=== PATIENT | male | born 1980 | race American Indian/Alaskan Native ===

== ENCOUNTER 2016-11-09 22:02 | Emergency (ER) | payer SELFPAY ==
[2016-11-09 22:15] VITALS: BP 124/71; PULSE 67; RESP 16; TEMP 98.3; O2SAT 99
[2016-11-09] MEDS ORDERED: Amoxicillin-Clav 875-125 mg Tab PO STA (22:30)
[2016-11-09] MEDS ORDERED: Bacitracin 500 Units/gm Oint Foilpak UD TOP ONE (22:30)
[2016-11-09] MEDS ORDERED: Amoxicillin-Clav 875-125 mg Tab PO ONE (22:33)
[2016-11-09] MEDS ORDERED: Bacitracin 500 Units/gm Oint Foilpak UD ONE (22:36)
--- NOTE | 2016-11-09 22:43 | C.PDOC ---
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 PAtient reports pain to the hand which is worsened with movement of the fingers. Denies fever, redness. Tetanus is not up to date. Time Seen by Provider: 11/09/16 22:23 Chief Complaint (Nursing): Abnormal Skin Integrity History Per: Patient History/Exam Limitations: no limitations Onset/Duration Of Symptoms: Persistent Current Symptoms Are (Timing): Still Present Quality Of Symptoms: Painful. denies: Swollen Recent travel outside of the [place]: No Past Medical History Reviewed: Historical Data, Nursing Documentation, Vital Signs Vital Signs: Last Vital Signs Temp 98.3 F 11/09/16 22:10 Pulse 67 11/09/16 22:10 Resp 16 11/09/16 22:10 BP 124/71 11/09/16 22:10 Pulse Ox 99 11/09/16 22:46 - Medical History PMH: No Chronic Diseases Family History: States: No Known Family Hx - Social History Hx Alcohol Use: No Hx Substance Use: No Review Of Systems Constitutional: Negative for: Fever, Chills Musculoskeletal: Positive for: Hand Pain Skin: Negative for: Rash Neurological: Negative for: Weakness, Numbness Physical Exam - Physical Exam Appears: Non-toxic, No Acute Distress Skin: Normal Color, No Rash, Other ((+) <0.5cm puncture wound to the mid palm at the radial longitudinal crease. No evidence of redness or swelling) Head: Atraumatic, Normacephalic Eye(s): bilateral: Normal Inspection Oral Mucosa: Moist Extremity: Capillary Refill (< 2 sec), Other (No Kanavel's sign or pain with moving of the fingers. ) Pulses: Left Radial: Normal, Right Radial: Normal Neurological/Psych: Oriented x3, Normal Motor, Normal Sensation Gait: Steady ED Course And Treatment O2 Sat by Pulse Oximetry: 99 (on RA) Pulse Ox Interpretation: Normal Medical Decision Making Medical Decision Making: Tetanus was administered. The wound was pressure irrigated with sterile saline and betadine with 100cc of fluid by SATYA Aguero. Baciatracin and sterile dressing was applied. Patient given Augmentin and was instructed to follow up with the PMD/clinic in 2 days for wound check. Return to the ED if worsened. Disposition - Disposition Referrals: Abigail Qureshi MD [Staff Provider] - Disposition: HOME/ ROUTINE Disposition Time: 22:42 Condition: GOOD Additional Instructions: Clean the wound twice a day with soap and water. Then apply bacitracin and keep covered. Follow up with the medical doctor/clinic within 1-2 days for wound check. RETURN TO THE ED IF ANY WORSENED PAIN IN THE HAND, TROUBLE MOVING IT, REDNESS, SWELLING, OR PUS DRAINING. Prescriptions: Amoxicillin/Clavulanate [Augmentin 875 MG-125 MG] 1 tab PO BID #14 tab Bacitracin Ointment [Bacitracin] 30 gm TOP BID #1 tube Instructions: Puncture Wound (ED) Forms: [facility] ([place]) - Clinical Impression Clinical Impression: Puncture wound
== END 2016-11-09 23:00 | disposition home or self-care (01) ==
LOC: C.ER 22:02
DX: S61.432A Puncture wound without foreign body of left hand, initial encounter (principal); W26.8XXA Contact with other sharp object(s), not elsewhere classified, initial encounter; Z23 Encounter for immunization